=== PATIENT | female | born 1960 | race Caucasian/White ===

== ENCOUNTER 2023-05-20 20:20 | Emergency (ER) | payer MEDICAID ==
[~2023-05-20] VITALS: Ht 167.6 cm; Wt 49.9 kg
[~2023-05-20 20:20] MED LIST: ALBU18HF2 INH; ALBU8.5H8 INH; FLUT10.62 INH; LEVO750T46 PO; PRED50TA PO
[2023-05-20 20:35] VITALS: BP 124/73; TEMP 98.3; O2SAT 98
[2023-05-20 20:57] LABS: BASOPHILS % (AUTO) 0.5 % (0.0-2.0); EOSINOPHILS # (AUTO) 0.1 K/uL (0.0-0.7); EOSINOPHILS % (AUTO) 3.1 % (0.0-6.0); HEMATOCRIT 42 % (33-45); HEMOGLOBIN 13.6 g/dL (11.5-14.8); LYMPHOCYTES # (AUTO) 0.8 K/uL (0.8-4.8); LYMPHOCYTES % (AUTO) 22.8 % (20.0-44.0); MEAN CORPUSCULAR HEMOGLOBIN 32 PG (26.0-33.0); MEAN CORPUSCULAR HGB CONC 33 g/dl (31.0-36.0); MEAN CORPUSCULAR VOLUME 97 fL (82-100); MONOCYTES # (AUTO) 0.3 K/uL (0.1-1.30); MONOCYTES % (AUTO) 7.4 % (2.0-12.0); NEUTROPHILS # (AUTO) 2.4 K/uL (1.8-8.9); NEUTROPHILS % (AUTO) 66.2 % (43.0-81.0); PLATELET COUNT (AUTO) 310 K/uL (150-450); RED BLOOD CELL COUNT(AUTO) 4.29 MIL/uL (4.0-5.2); RED CELL DISTRIBUTION WIDTH 16.4 % (11.5-15.0); WHITE BLOOD COUNT (AUTO) 3.6 K/uL (4.3-11.0)
[2023-05-20 21:08] LABS: APPEARANCE,URINE CLEAR (CLEAR); BILIRUBIN,URINE NEGATIVE (NEGATIVE); BLOOD, URINE NEGATIVE Ery/uL (NEGATIVE); COLOR,URINE YELLOW (YELLOW); KETONES,URINE NEGATIVE (NEGATIVE); LEUKOCYTE ESTERASE ,URINE NEGATIVE (NEGATIVE); NITRITE, URINE NEGATIVE (NEGATIVE); PROTEIN,URINE 1+ mg/dl (NEGATIVE); UGLUCOSE NEGATIVE (NEGATIVE); UROBILINOGEN,URINE 0.2 EU/dL (0.2)
[2023-05-20 21:17] LABS: CALCIUM, SERUM 9.1 mg/dL (8.5-10.1); CARBON DIOXIDE 24 mmol/L (21-32); CHLORIDE 99 mmol/L (98-107); CREATININE 0.8 mg/dL (0.6-1.3); GLUCOSE 86 mg/dL (74-106); POTASSIUM 3.3 mmol/L (3.5-5.1); SODIUM SERUM 133 mmol/L (136-145); UREA NITROGEN, BLOOD 6 mg/dL (7-18)
[2023-05-20 21:24] LABS: ALANINE AMINOTRANSFERASE 24 U/L (12-78); ALBUMIN 3.2 g/dL (3.4-5.0); ALKALINE PHOSPHATASE 198 U/L (46-116); ASPARTATE AMINOTRANSFERASE 35 U/L (15-37); BILIRUBIN,DIRECT 0.1 mg/dL (0.0-0.2); BILIRUBIN,TOTAL 0.2 mg/dL (0.2-1.0); TOTAL PROTEIN, SERUM 8.7 g/dL (6.4-8.2)
[2023-05-20 21:29] LABS: ADD URINE CULTURE NO; BACTERIA,URINE None seen /HPF (None Seen); MUCUS,URINE Few /LPF (None Seen); RBC,URINE 0-2 /HPF (0-2); WBC,URINE 0-2 /HPF (0-3)
== END 2023-05-20 22:03 | disposition home or self-care (01) ==
LOC: ER 20:21
DX: R53.1 Weakness (principal); J44.9 Chronic obstructive pulmonary disease, unspecified; Z79.899 Other long term (current) drug therapy; Z90.49 Acquired absence of other specified parts of digestive tract; Z59.00 Homelessness unspecified
CPT/HCPCS: 36415; 71045-TC; 80048-TC; 80076-TC; 81001; 84484-TC; 85025-TC

== ENCOUNTER 2023-10-22 09:14 | Inpatient (IN) | payer MEDICAID ==
[~2023-10-22] VITALS: Ht 167.6 cm; Wt 47.6 kg
[2023-10-22] VITALS (9 sets, daily range): BP systolic 142–151; BP diastolic 74–79; TEMP 98.6–99; O2SAT 93–100
[2023-10-22] MEDS ORDERED: Magnesium 1GM/D5W 100ML PREMIX 100 ML IV ONE (09:30)
[2023-10-22] MEDS ORDERED: methylPREDNISolone SOD SUCC 125 MG/2ML VIAL ONE (09:30)
[2023-10-22] MEDS ORDERED: methylPREDNISolone SOD SUCC 125 MG/2ML VIAL IV ONE (09:30)
[2023-10-22] MEDS: IPRATROPIUM NEB FS 0.5 MG/2.5 ML AMPUL.NEB NEB ONE (09:30)
[2023-10-22] MEDS: ALBUTEROL FS 2.5 MG/3 ML VIAL.NEB NEB ONE (09:30)
[2023-10-22] MEDS: methylPREDNISolone SOD SUCC 40 MG/ML VIAL IV ONE (09:32)
[2023-10-22] MEDS ORDERED: ALBUTEROL FS 2.5 MG/3 ML VIAL.NEB ONE (09:34)
[2023-10-22] MEDS ORDERED: ALBUTEROL FS 2.5 MG/0.5 ML VIAL.NEB ONE (09:34)
[2023-10-22] MEDS: Magnesium 1GM/D5W 100ML PREMIX 200 ML IV ONE (09:35)
[2023-10-22] MEDS ORDERED: methylPREDNISolone SOD SUCC 40 MG/ML VIAL ONE (09:35)
[2023-10-22] MEDS ORDERED: BICT1TAB PO (10:09)
[2023-10-22] MEDS ORDERED: ALBU18HF2 IH (10:09)
[2023-10-22 10:43] LABS: BASOPHILS % (AUTO) 0.8 % (0.0-2.0); EOSINOPHILS # (AUTO) 0.1 K/uL (0.0-0.7); EOSINOPHILS % (AUTO) 3.3 % (0.0-6.0); HEMATOCRIT 36 % (33-45); HEMOGLOBIN 12.1 g/dL (11.5-14.8); LYMPHOCYTES # (AUTO) 1.5 K/uL (0.8-4.8); LYMPHOCYTES % (AUTO) 32.9 % (20.0-44.0); MEAN CORPUSCULAR HEMOGLOBIN 32 PG (26.0-33.0); MEAN CORPUSCULAR HGB CONC 34 g/dl (31.0-36.0); MEAN CORPUSCULAR VOLUME 96 fL (82-100); MONOCYTES # (AUTO) 0.2 K/uL (0.1-1.30); MONOCYTES % (AUTO) 4.3 % (2.0-12.0); NEUTROPHILS # (AUTO) 2.6 K/uL (1.8-8.9); NEUTROPHILS % (AUTO) 58.7 % (43.0-81.0); PLATELET COUNT (AUTO) 306 K/uL (150-450); RED BLOOD CELL COUNT(AUTO) 3.76 MIL/uL (4.0-5.2); WHITE BLOOD COUNT (AUTO) 4.5 K/uL (4.3-11.0)
[2023-10-22 10:52] LABS: LACTIC ACID 1.3 mmol/L (0.4-2.0)
[2023-10-22 10:57] LABS: CALCIUM, SERUM 8.8 mg/dL (8.5-10.1); CARBON DIOXIDE 26 mmol/L (21-32); CHLORIDE 102 mmol/L (98-107); CREATININE 0.7 mg/dL (0.6-1.3); GLUCOSE 107 mg/dL (74-106); POTASSIUM 3.3 mmol/L (3.5-5.1); SODIUM SERUM 140 mmol/L (136-145); UREA NITROGEN, BLOOD 1 mg/dL (7-18)
[2023-10-22 11:03] LABS: ALANINE AMINOTRANSFERASE 19 U/L (12-78); ALBUMIN 2.6 g/dL (3.4-5.0); ALKALINE PHOSPHATASE 225 U/L (46-116); ASPARTATE AMINOTRANSFERASE 42 U/L (15-37); BILIRUBIN,DIRECT 0.1 mg/dL (0.0-0.2); BILIRUBIN,TOTAL 0.2 mg/dL (0.2-1.0); TOTAL PROTEIN, SERUM 8.1 g/dL (6.4-8.2)
[2023-10-22] MEDS: IPRATROPIUM NEB FS 0.5 MG/2.5 ML AMPUL.NEB NEB SCH (13:00)
[2023-10-22] MEDS ORDERED: ZOLPIDEM TARTRATE 5 MG TABLET PO PRN (13:00)
[2023-10-22] MEDS ORDERED: Z GUARD REMEDY 4 OZ OINT TP PRN (13:00)
[2023-10-22] MEDS: ALBUTEROL FS 2.5 MG/0.5 ML VIAL.NEB NEB SCH (13:00)
[2023-10-22] MEDS: methylPREDNISolone SOD SUCC 40 MG/ML VIAL IV SCH (13:16)
[2023-10-22] MEDS: IV 1/2NS 1000 ML 1,000 ML IV PRN (13:17)
[2023-10-22] MEDS: POTASSIUM CL. PREMIX PERIPHER. 50 ML IV SCH (13:17)
[2023-10-22] MEDS: ENOXAPARIN SODIUM 40 MG/0.4 ML DISP.SYRIN SQ SCH (13:20)
[2023-10-23] VITALS (13 sets, daily range): BP systolic 121–151; BP diastolic 57–83; TEMP 97.4–99.3; O2SAT 94–100
[2023-10-23] MEDS: HYDROCODONE/APAP 5/325MG TABLET PO PRN (00:45)
[2023-10-23] MEDS: MAG HYDROX/AL HYDROX/SIMETH 30 ML UDC PO PRN (02:56)
[2023-10-23 04:28] LABS: ABG BASE EXCESS 1.6 mmol/L; ABG OXYGEN SATURATION 94.9 % (92.0-98.5); ABG PCO2 31.5 mmHg (35.0-45.0); ABG PH 7.502 (7.350-7.450); ABG PO2 73.9 mmHg (75.0-100.0); ABG TOTAL HEMOGLOBIN 12.8 G/dL (12.0-16.0); AaDO2 38.1 mmHg; COHb 0.3 % (0.5-1.5); MetHb 0.3 % (0.0-1.5); O2Hb 94.3 % (94.0-97.0); SITE, ABG Left Brachial; VENT MODE, BG ROOM AIR
[2023-10-23] MEDS: LORAZEPAM INJ 2 MG/ML VIAL IV ONE (07:01)
[2023-10-23 07:19] LABS: BASOPHILS % (AUTO) 0.1 % (0.0-2.0); EOSINOPHILS % (AUTO) 0.1 % (0.0-6.0); HEMATOCRIT 34 % (33-45); HEMOGLOBIN 11.2 g/dL (11.5-14.8); LYMPHOCYTES # (AUTO) 0.7 K/uL (0.8-4.8); LYMPHOCYTES % (AUTO) 12.1 % (20.0-44.0); MEAN CORPUSCULAR HEMOGLOBIN 33 PG (26.0-33.0); MEAN CORPUSCULAR HGB CONC 33 g/dl (31.0-36.0); MEAN CORPUSCULAR VOLUME 100 fL (82-100); MONOCYTES # (AUTO) 0.3 K/uL (0.1-1.30); MONOCYTES % (AUTO) 5.7 % (2.0-12.0); NEUTROPHILS # (AUTO) 4.6 K/uL (1.8-8.9); PLATELET COUNT (AUTO) 316 K/uL (150-450); RED BLOOD CELL COUNT(AUTO) 3.44 MIL/uL (4.0-5.2); RED CELL DISTRIBUTION WIDTH 15.7 % (11.5-15.0); WHITE BLOOD COUNT (AUTO) 5.6 K/uL (4.3-11.0)
[2023-10-23 07:48] LABS: ALBUMIN 2.4 g/dL (3.4-5.0); BILIRUBIN,TOTAL 0.3 mg/dL (0.2-1.0); CALCIUM, SERUM 9.1 mg/dL (8.5-10.1); CREATININE 0.7 mg/dL (0.6-1.3); PHOSPHORUS 3.7 mg/dL (2.5-4.9); POTASSIUM 4.8 mmol/L (3.5-5.1); TOTAL PROTEIN, SERUM 7.8 g/dL (6.4-8.2)
[2023-10-23] MEDS ORDERED: IV NS 0.9% 250 ML IV ONE (10:45)
[2023-10-23] MEDS ORDERED: IOHEXOL-300 100 ML VIAL IV ONE (10:45)
[2023-10-23] MEDS ORDERED: CT SWABBABLE VALVE TRANS SET 1 EA INFUS.SET MC ONE (10:45)
[2023-10-23] MEDS: MAGNESIUM HYDROXIDE 30 ML UDC PO PRN (16:11)
[2023-10-23] MEDS: ENSURE ENLIVE 237 ML LIQUID (VANILLA) PO SCH (17:10)
[2023-10-24] VITALS (10 sets, daily range): BP systolic 155–157; BP diastolic 83–101; TEMP 97.2–98.4; O2SAT 95–98
[2023-10-25] VITALS (8 sets, daily range): BP systolic 157–189; BP diastolic 90–109; TEMP 97–99.1; O2SAT 95–99
[2023-10-25] MEDS: LORAZEPAM 1 MG TABLET PO PRN (03:33)
[2023-10-25 06:13] LABS: THYROID STIMULATING HORMONE 1.083 uIU/mL (0.358-3.74); URIC ACID 2.1 mg/dL (2.6-7.2)
[2023-10-25] MEDS ORDERED: SIMETHICONE/SOD BICARB/CIT AC 1 EACH GRAN.EF.PK PO ONE (10:06)
[2023-10-25] MEDS ORDERED: BARIUM SULFATE 98% 135 ML SUSP.RECON PO ONE (10:07)
[2023-10-25 10:29] LABS: CALCIUM, SERUM 9.3 mg/dL (8.5-10.1); CREATININE 0.7 mg/dL (0.6-1.3); MAGNESIUM 2.3 mg/dL (1.8-2.4); PHOSPHORUS 2.4 mg/dL (2.5-4.9); POTASSIUM 3.9 mmol/L (3.5-5.1)
[2023-10-25] MEDS: ONDANSETRON HCL/PF 4 MG/2 ML VIAL IVP PRN (15:43)
[2023-10-25] MEDS: K PHOS NEUTRAL 250 MG TABLET PO ONE (17:16)
[2023-10-25] MEDS: CLONIDINE HCL 0.1 MG TABLET PO SCH (17:16)
[2023-10-25] MEDS: CLONIDINE HCL 0.1 MG TABLET PO ONE (22:23)
[2023-10-26 08:00] VITALS: BP 162/104; TEMP 98.2; O2SAT 94
[2023-10-26 10:00] VITALS: BP 155/95; TEMP 98.2; O2SAT 94
[2023-10-26] MEDS ORDERED: MIDAZOLAM HCL 2 MG/2ML VIAL ONE (12:16)
[2023-10-26] MEDS ORDERED: ANESTHESIA TRAY IN PYXIS 1 EA TRAY MC ONE (12:17)
[2023-10-26 12:35] LABS: BASOPHILS % (AUTO) 0.1 % (0.0-2.0); EOSINOPHILS % (AUTO) 0.1 % (0.0-6.0); HEMATOCRIT 39 % (33-45); HEMOGLOBIN 13.2 g/dL (11.5-14.8); LYMPHOCYTES % (AUTO) 17.7 % (20.0-44.0); MEAN CORPUSCULAR HEMOGLOBIN 32 PG (26.0-33.0); MEAN CORPUSCULAR HGB CONC 34 g/dl (31.0-36.0); MEAN CORPUSCULAR VOLUME 95 fL (82-100); MONOCYTES # (AUTO) 0.4 K/uL (0.1-1.30); MONOCYTES % (AUTO) 7.6 % (2.0-12.0); NEUTROPHILS # (AUTO) 4.1 K/uL (1.8-8.9); NEUTROPHILS % (AUTO) 74.5 % (43.0-81.0); PLATELET COUNT (AUTO) 372 K/uL (150-450); RED BLOOD CELL COUNT(AUTO) 4.12 MIL/uL (4.0-5.2); RED CELL DISTRIBUTION WIDTH 15.6 % (11.5-15.0); WHITE BLOOD COUNT (AUTO) 5.5 K/uL (4.3-11.0)
[2023-10-26 12:47] LABS: CALCIUM, SERUM 9.2 mg/dL (8.5-10.1); CREATININE 0.5 mg/dL (0.6-1.3); POTASSIUM 3.6 mmol/L (3.5-5.1)
[2023-10-26 12:49] LABS: INR 0.99 (0.91-1.10); PROTHROMBIN TIME 10.5 SECS (9.2-11.1)
[2023-10-26] MEDS: ACETAMINOPHEN 325 MG TABLET PO PRN (13:48)
[2023-10-26 16:00] VITALS: BP 127/74; TEMP 98.1; O2SAT 98
[2023-10-26] MEDS: FLUCONAZOLE (100 MG) 100 MG TABLET PO SCH (17:36)
[2023-10-26 20:00] VITALS: BP 143/90; TEMP 98.1; O2SAT 96
[2023-10-27 03:44] VITALS: O2SAT 96
[2023-10-27 03:59] VITALS: O2SAT 99
[2023-10-27 08:00] VITALS: BP 174/100; TEMP 97.7; O2SAT 100
[2023-10-27] MEDS: AMLODIPINE BESYLATE 5 MG TABLET PO SCH (09:08)
[2023-10-27] MEDS: MUPIROCIN OINT 2% 22 GM TUBE NS SCH (10:59)
[2023-10-27] MEDS ORDERED: PANT40TA2 PO (11:18)
[2023-10-27] MEDS ORDERED: ALBU18HF2 INH (11:18)
[2023-10-27] MEDS ORDERED: FLUC200T8 PO (11:18)
[2023-10-27] MEDS ORDERED: CLON0.1T PO (11:18)
[2023-10-27] MEDS ORDERED: AMLO-212 PO (11:18)
[2023-10-27] MEDS ORDERED: FLUT1DIS3 INH (11:18)
[2023-10-27 16:00] VITALS: BP 100/59; TEMP 97.8; O2SAT 94
[2023-10-27 20:00] VITALS: BP 169/85; TEMP 98.1; O2SAT 100
[2023-10-28 07:00] VITALS: BP_SYST 153; BP_SYST 175; BP_DIAS 83; BP_DIAS 95; TEMP 97.2; TEMP 98.1; O2SAT 100; O2SAT 97
[2023-10-28 07:24] LABS: CALCIUM, SERUM 9.1 mg/dL (8.5-10.1); CREATININE 0.6 mg/dL (0.6-1.3); POTASSIUM 4.2 mmol/L (3.5-5.1)
[2023-10-28] MEDS: AMLODIPINE BESYLATE 10 MG TABLET PO SCH (10:02)
[2023-10-28] MEDS: ASPIRIN 325 MG TABLET PO SCH (10:26)
[2023-10-28] MEDS: ATORVASTATIN 40 MG TABLET PO SCH (10:26)
[2023-10-28] MEDS: methylPREDNISolone SOD SUCC 40 MG/ML VIAL IV SCH (10:30)
[2023-10-28 11:15] LABS: THYROID STIMULATING HORMONE 4.086 uIU/mL (0.358-3.74)
[2023-10-28] MEDS ORDERED: IV NS 0.9% 250 ML IV ONE (15:11)
[2023-10-28] MEDS ORDERED: IOHEXOL-350 100 ML VIAL IV ONE (15:11)
[2023-10-28 16:00] VITALS: BP 101/31; TEMP 99.5; O2SAT 100
[2023-10-28] MEDS ORDERED: CLOPIDOGREL BISULFATE 75 MG TABLET PO SCH (17:00)
[2023-10-28] MEDS: CLOPIDOGREL BISULFATE 75 MG TABLET PO SCH (17:03)
[2023-10-28 20:00] VITALS: BP 139/82; TEMP 99.5; O2SAT 99
[2023-10-28 21:31] VITALS: O2SAT 95
[2023-10-28 21:46] VITALS: O2SAT 99
[2023-10-29 08:00] VITALS: BP 155/74; TEMP 97.7; O2SAT 96
[2023-10-29 16:00] VITALS: BP 140/86; TEMP 98.8; O2SAT 93
[2023-10-29 20:00] VITALS: BP 146/74; TEMP 97.5; O2SAT 99
[2023-10-29 23:34] VITALS: O2SAT 96
[2023-10-29 23:49] VITALS: O2SAT 99
[2023-10-30 03:08] LABS: FOLIC ACID 7.4 ng/mL (>3.0)
[2023-10-30 07:04] LABS: BASOPHILS % (AUTO) 0.2 % (0.0-2.0); HEMATOCRIT 42 % (33-45); HEMOGLOBIN 14.4 g/dL (11.5-14.8); LYMPHOCYTES # (AUTO) 1.1 K/uL (0.8-4.8); LYMPHOCYTES % (AUTO) 12.7 % (20.0-44.0); MEAN CORPUSCULAR HEMOGLOBIN 33 PG (26.0-33.0); MEAN CORPUSCULAR HGB CONC 35 g/dl (31.0-36.0); MEAN CORPUSCULAR VOLUME 95 fL (82-100); MONOCYTES # (AUTO) 0.7 K/uL (0.1-1.30); MONOCYTES % (AUTO) 7.8 % (2.0-12.0); NEUTROPHILS # (AUTO) 6.8 K/uL (1.8-8.9); NEUTROPHILS % (AUTO) 79.3 % (43.0-81.0); PLATELET COUNT (AUTO) 474 K/uL (150-450); RED BLOOD CELL COUNT(AUTO) 4.41 MIL/uL (4.0-5.2); RED CELL DISTRIBUTION WIDTH 15.5 % (11.5-15.0); WHITE BLOOD COUNT (AUTO) 8.5 K/uL (4.3-11.0)
[2023-10-30 07:21] LABS: CALCIUM, SERUM 9.3 mg/dL (8.5-10.1); CREATININE 0.7 mg/dL (0.6-1.3); POTASSIUM 4.4 mmol/L (3.5-5.1)
[2023-10-30 07:30] VITALS: BP 149/99; TEMP 97.5; O2SAT 99
[2023-10-30 11:24] VITALS: O2SAT 91
[2023-10-30 11:39] VITALS: O2SAT 96
[2023-10-30 16:00] VITALS: BP 156/81; TEMP 97.9; O2SAT 95
[2023-10-30 20:00] VITALS: BP 159/91; TEMP 98.1; O2SAT 96
[2023-10-31] VITALS (9 sets, daily range): BP systolic 132–149; BP diastolic 76–99; TEMP 97.7–98.7; O2SAT 92–100
[2023-10-31 06:51] LABS: BASOPHILS % (AUTO) 0.2 % (0.0-2.0); HEMATOCRIT 45 % (33-45); HEMOGLOBIN 15.1 g/dL (11.5-14.8); LYMPHOCYTES % (AUTO) 12.2 % (20.0-44.0); MEAN CORPUSCULAR HEMOGLOBIN 32 PG (26.0-33.0); MEAN CORPUSCULAR HGB CONC 34 g/dl (31.0-36.0); MEAN CORPUSCULAR VOLUME 95 fL (82-100); MONOCYTES # (AUTO) 0.6 K/uL (0.1-1.30); MONOCYTES % (AUTO) 7.4 % (2.0-12.0); NEUTROPHILS # (AUTO) 6.5 K/uL (1.8-8.9); NEUTROPHILS % (AUTO) 80.2 % (43.0-81.0); PLATELET COUNT (AUTO) 559 K/uL (150-450); RED BLOOD CELL COUNT(AUTO) 4.71 MIL/uL (4.0-5.2); RED CELL DISTRIBUTION WIDTH 15.3 % (11.5-15.0); WHITE BLOOD COUNT (AUTO) 8.1 K/uL (4.3-11.0)
[2023-10-31 07:01] LABS: CALCIUM, SERUM 9.8 mg/dL (8.5-10.1); CREATININE 0.8 mg/dL (0.6-1.3); POTASSIUM 4.5 mmol/L (3.5-5.1)
[2023-10-31] MEDS: LEVOTHYROXINE SODIUM 50 MCG TABLET PO SCH (10:17)
[2023-10-31] MEDS ORDERED: IV NS 0.9% 1,000 ML BAG IV PRN (10:30)
[2023-10-31] MEDS: FAMOTIDINE (20 MG) 20 MG TABLET PO SCH (18:07)
[2023-11-01] VITALS (10 sets, daily range): BP systolic 117–154; BP diastolic 70–91; TEMP 97.7–98.4; O2SAT 95–100
[2023-11-01] MEDS: IV NS 0.9% 1,000 ML IV PRN (04:30)
[2023-11-01 07:31] LABS: BASOPHILS % (AUTO) 0.1 % (0.0-2.0); HEMATOCRIT 45 % (33-45); HEMOGLOBIN 14.9 g/dL (11.5-14.8); LYMPHOCYTES # (AUTO) 0.8 K/uL (0.8-4.8); LYMPHOCYTES % (AUTO) 6.6 % (20.0-44.0); MEAN CORPUSCULAR HEMOGLOBIN 32 PG (26.0-33.0); MEAN CORPUSCULAR HGB CONC 33 g/dl (31.0-36.0); MEAN CORPUSCULAR VOLUME 96 fL (82-100); MONOCYTES # (AUTO) 0.4 K/uL (0.1-1.30); MONOCYTES % (AUTO) 3.6 % (2.0-12.0); NEUTROPHILS # (AUTO) 10.4 K/uL (1.8-8.9); NEUTROPHILS % (AUTO) 89.7 % (43.0-81.0); PLATELET COUNT (AUTO) 493 K/uL (150-450); RED BLOOD CELL COUNT(AUTO) 4.64 MIL/uL (4.0-5.2); RED CELL DISTRIBUTION WIDTH 15.3 % (11.5-15.0); WHITE BLOOD COUNT (AUTO) 11.5 K/uL (4.3-11.0)
[2023-11-01 08:04] LABS: CALCIUM, SERUM 9.1 mg/dL (8.5-10.1); CREATININE 0.7 mg/dL (0.6-1.3); POTASSIUM 4.4 mmol/L (3.5-5.1)
[2023-11-01] MEDS: LIDOCAINE 5% (PATCH) 1 EA PATCH TP SCH (13:15)
[2023-11-02] VITALS (12 sets, daily range): BP systolic 115–141; BP diastolic 74–89; TEMP 97.6–99; O2SAT 95–100
[2023-11-02 06:20] LABS: BASOPHILS % (AUTO) 0.1 % (0.0-2.0); HEMATOCRIT 41 % (33-45); HEMOGLOBIN 13.6 g/dL (11.5-14.8); LYMPHOCYTES # (AUTO) 0.7 K/uL (0.8-4.8); LYMPHOCYTES % (AUTO) 4.7 % (20.0-44.0); MEAN CORPUSCULAR HEMOGLOBIN 32 PG (26.0-33.0); MEAN CORPUSCULAR HGB CONC 34 g/dl (31.0-36.0); MEAN CORPUSCULAR VOLUME 95 fL (82-100); MONOCYTES % (AUTO) 6.4 % (2.0-12.0); NEUTROPHILS # (AUTO) 13.8 K/uL (1.8-8.9); NEUTROPHILS % (AUTO) 88.8 % (43.0-81.0); PLATELET COUNT (AUTO) 412 K/uL (150-450); RED BLOOD CELL COUNT(AUTO) 4.26 MIL/uL (4.0-5.2); RED CELL DISTRIBUTION WIDTH 15.4 % (11.5-15.0); WHITE BLOOD COUNT (AUTO) 15.5 K/uL (4.3-11.0)
[2023-11-02 06:56] LABS: CALCIUM, SERUM 9.3 mg/dL (8.5-10.1); CREATININE 0.6 mg/dL (0.6-1.3)
[2023-11-02] MEDS: AMLODIPINE BESYLATE 10 MG TABLET PO SCH (10:40)
[2023-11-02] MEDS: TRAMADOL HCL 50 MG TABLET PO SCH (14:46)
[2023-11-02 18:13] LABS: URINE SODIUM, RANDOM 76 mmol/l (40-220)
[2023-11-03] VITALS (7 sets, daily range): BP systolic 132–152; BP diastolic 63–81; TEMP 97.5–99.1; O2SAT 93–100
[2023-11-03 06:42] LABS: BASOPHILS % (AUTO) 0.2 % (0.0-2.0); HEMATOCRIT 35 % (33-45); HEMOGLOBIN 11.9 g/dL (11.5-14.8); LYMPHOCYTES # (AUTO) 0.6 K/uL (0.8-4.8); LYMPHOCYTES % (AUTO) 2.8 % (20.0-44.0); MEAN CORPUSCULAR HEMOGLOBIN 32 PG (26.0-33.0); MEAN CORPUSCULAR HGB CONC 34 g/dl (31.0-36.0); MEAN CORPUSCULAR VOLUME 94 fL (82-100); MONOCYTES % (AUTO) 5.2 % (2.0-12.0); NEUTROPHILS % (AUTO) 91.8 % (43.0-81.0); PLATELET COUNT (AUTO) 379 K/uL (150-450); RED BLOOD CELL COUNT(AUTO) 3.69 MIL/uL (4.0-5.2); RED CELL DISTRIBUTION WIDTH 15.6 % (11.5-15.0); WHITE BLOOD COUNT (AUTO) 19.7 K/uL (4.3-11.0)
[2023-11-03 07:44] LABS: CREATININE 0.5 mg/dL (0.6-1.3)
[2023-11-03 08:14] LABS: CALCIUM, SERUM 8.6 mg/dL (8.5-10.1)
[2023-11-03 17:19] LABS: OSMOLALITY,URINE 538 mOS/kg (340-1090)
[2023-11-04] VITALS (14 sets, daily range): BP systolic 110–156; BP diastolic 62–90; TEMP 98–99.5; O2SAT 91–99
[2023-11-04 07:08] LABS: BASOPHILS # (AUTO) 0.1 K/uL (0.0-0.2); BASOPHILS % (AUTO) 0.2 % (0.0-2.0); HEMATOCRIT 35 % (33-45); HEMOGLOBIN 11.9 g/dL (11.5-14.8); LYMPHOCYTES # (AUTO) 0.5 K/uL (0.8-4.8); LYMPHOCYTES % (AUTO) 2.1 % (20.0-44.0); MEAN CORPUSCULAR HEMOGLOBIN 32 PG (26.0-33.0); MEAN CORPUSCULAR HGB CONC 34 g/dl (31.0-36.0); MEAN CORPUSCULAR VOLUME 94 fL (82-100); MONOCYTES # (AUTO) 0.7 K/uL (0.1-1.30); MONOCYTES % (AUTO) 3.4 % (2.0-12.0); NEUTROPHILS # (AUTO) 20.7 K/uL (1.8-8.9); NEUTROPHILS % (AUTO) 94.3 % (43.0-81.0); PLATELET COUNT (AUTO) 346 K/uL (150-450); RED BLOOD CELL COUNT(AUTO) 3.69 MIL/uL (4.0-5.2); RED CELL DISTRIBUTION WIDTH 15.3 % (11.5-15.0); WHITE BLOOD COUNT (AUTO) 21.9 K/uL (4.3-11.0)
[2023-11-04 07:48] LABS: CALCIUM, SERUM 9.1 mg/dL (8.5-10.1); CREATININE 0.6 mg/dL (0.6-1.3); POTASSIUM 3.8 mmol/L (3.5-5.1)
[2023-11-04] MEDS: LORAZEPAM INJ 2 MG/ML VIAL IV ONE (16:43)
[2023-11-04] MEDS: BACLOFEN (10 MG) 10 MG TABLET PO SCH (16:50)
[2023-11-05 06:21] LABS: BASOPHILS # (AUTO) 0.1 K/uL (0.0-0.2); BASOPHILS % (AUTO) 0.4 % (0.0-2.0); CALCIUM, SERUM 9.3 mg/dL (8.5-10.1); CREATININE 0.6 mg/dL (0.6-1.3); HEMATOCRIT 34 % (33-45); HEMOGLOBIN 11.3 g/dL (11.5-14.8); LYMPHOCYTES # (AUTO) 0.5 K/uL (0.8-4.8); LYMPHOCYTES % (AUTO) 2.4 % (20.0-44.0); MEAN CORPUSCULAR HEMOGLOBIN 31 PG (26.0-33.0); MEAN CORPUSCULAR HGB CONC 33 g/dl (31.0-36.0); MEAN CORPUSCULAR VOLUME 94 fL (82-100); MONOCYTES # (AUTO) 0.7 K/uL (0.1-1.30); MONOCYTES % (AUTO) 3.5 % (2.0-12.0); NEUTROPHILS # (AUTO) 17.4 K/uL (1.8-8.9); NEUTROPHILS % (AUTO) 93.7 % (43.0-81.0); PLATELET COUNT (AUTO) 344 K/uL (150-450); POTASSIUM 3.8 mmol/L (3.5-5.1); RED BLOOD CELL COUNT(AUTO) 3.62 MIL/uL (4.0-5.2); RED CELL DISTRIBUTION WIDTH 15.4 % (11.5-15.0); WHITE BLOOD COUNT (AUTO) 18.6 K/uL (4.3-11.0)
[2023-11-05 08:00] VITALS: BP 148/86; TEMP 98.8; O2SAT 94
[2023-11-05 08:27] VITALS: O2SAT 99
[2023-11-05] MEDS: AMLODIPINE BESYLATE 10 MG TABLET PO SCH (08:32)
[2023-11-05] MEDS: RIVAROXABAN 10 MG TABLET PO SCH (09:23)
[2023-11-05 12:00] VITALS: BP 154/95; TEMP 97.6; O2SAT 96
[2023-11-05 16:00] VITALS: BP 136/78; TEMP 99.7; O2SAT 96
[2023-11-05 20:23] VITALS: BP 148/81; TEMP 97.9; O2SAT 90
[2023-11-05 21:05] VITALS: BP 148/81; TEMP 97.9; O2SAT 90
[2023-11-05] MEDS: TRAMADOL HCL 50 MG TABLET PO PRN (22:12)
[2023-11-06] VITALS (7 sets, daily range): BP systolic 129–146; BP diastolic 78–85; TEMP 97.6–99.5; O2SAT 91–98
[2023-11-06] MEDS: LIDOCAINE 5% (PATCH) 1 EA PATCH TP SCH (12:00)
[2023-11-06] MEDS: HYDROMORPHONE 1 MG/1 ML DISP.SYRIN IV PRN (12:16)
[2023-11-06] MEDS: BACLOFEN (10 MG) 10 MG TABLET PO SCH (12:53)
[2023-11-06] MEDS: GABAPENTIN 100 MG CAPSULE PO SCH (17:57)
[2023-11-06] MEDS: TEMAZEPAM 15 MG CAPSULE PO SCH (21:16)
[2023-11-07] VITALS (8 sets, daily range): BP systolic 123–153; BP diastolic 64–88; TEMP 98.2–102; O2SAT 88–98
[2023-11-07] MEDS: MUPIROCIN OINT 2% 22 GM TUBE NS SCH (09:34)
[2023-11-08] VITALS (13 sets, daily range): BP systolic 115–149; BP diastolic 66–85; TEMP 97.2–100.8; O2SAT 92–99
[2023-11-08 11:10] LABS: HEMATOCRIT 36 % (33-45); HEMOGLOBIN 11.9 g/dL (11.5-14.8); LYMPHOCYTES # (AUTO) 0.3 K/uL (0.8-4.8); LYMPHOCYTES % (AUTO) 3.8 % (20.0-44.0); MEAN CORPUSCULAR HEMOGLOBIN 31 PG (26.0-33.0); MEAN CORPUSCULAR HGB CONC 33 g/dl (31.0-36.0); MEAN CORPUSCULAR VOLUME 96 fL (82-100); MONOCYTES # (AUTO) 0.2 K/uL (0.1-1.30); MONOCYTES % (AUTO) 2.1 % (2.0-12.0); NEUTROPHILS # (AUTO) 8.4 K/uL (1.8-8.9); NEUTROPHILS % (AUTO) 94.1 % (43.0-81.0); PLATELET COUNT (AUTO) 226 K/uL (150-450); RED BLOOD CELL COUNT(AUTO) 3.77 MIL/uL (4.0-5.2); RED CELL DISTRIBUTION WIDTH 15.8 % (11.5-15.0); WHITE BLOOD COUNT (AUTO) 8.9 K/uL (4.3-11.0)
[2023-11-08 11:21] LABS: CALCIUM, SERUM 8.7 mg/dL (8.5-10.1); CREATININE 0.6 mg/dL (0.6-1.3); MAGNESIUM 2.3 mg/dL (1.8-2.4); PHOSPHORUS 2.8 mg/dL (2.5-4.9); POTASSIUM 3.4 mmol/L (3.5-5.1)
[2023-11-08] MEDS ORDERED: POLYETHYLENE GLYCOL 3350 17 GM POWD.PACK PO PRN (12:00)
[2023-11-08] MEDS: POTASSIUM CHLORIDE 20 MEQ TAB.PRT.SR PO ONE (13:02)
[2023-11-08] MEDS ORDERED: NALOXONE HCL 0.4 MG/ML AMPUL IV PRN ×2 (16:00→16:02)
[2023-11-08] MEDS: GABAPENTIN 100 MG CAPSULE PO SCH (17:08)
[2023-11-08] MEDS: VANCOMYCIN 1 GM in IV D5W 250ml IV ONE (20:25)
[2023-11-08] MEDS: CEFEPIME 1 GM in IV D5W 50 ML IV SCH (21:49)
[2023-11-09] VITALS (10 sets, daily range): BP systolic 110–148; BP diastolic 68–86; TEMP 97.3–99.1; O2SAT 95–100
[2023-11-09 06:17] LABS: BASOPHILS % (AUTO) 0.1 % (0.0-2.0); HEMATOCRIT 35 % (33-45); HEMOGLOBIN 11.6 g/dL (11.5-14.8); LYMPHOCYTES # (AUTO) 0.3 K/uL (0.8-4.8); MEAN CORPUSCULAR HEMOGLOBIN 32 PG (26.0-33.0); MEAN CORPUSCULAR HGB CONC 33 g/dl (31.0-36.0); MEAN CORPUSCULAR VOLUME 96 fL (82-100); MONOCYTES # (AUTO) 0.2 K/uL (0.1-1.30); MONOCYTES % (AUTO) 1.7 % (2.0-12.0); NEUTROPHILS # (AUTO) 9.8 K/uL (1.8-8.9); NEUTROPHILS % (AUTO) 95.2 % (43.0-81.0); PLATELET COUNT (AUTO) 204 K/uL (150-450); RED BLOOD CELL COUNT(AUTO) 3.68 MIL/uL (4.0-5.2); RED CELL DISTRIBUTION WIDTH 15.7 % (11.5-15.0); WHITE BLOOD COUNT (AUTO) 10.3 K/uL (4.3-11.0)
[2023-11-09 06:50] LABS: CALCIUM, SERUM 9.1 mg/dL (8.5-10.1); CREATININE 0.5 mg/dL (0.6-1.3); POTASSIUM 4.3 mmol/L (3.5-5.1)
[2023-11-09] MEDS: VANCOMYCIN 750 MG in IV D5W 250 ML IV SCH (08:08)
[2023-11-09] MEDS ORDERED: LIDOCAINE 5% (PATCH) 1 EA PATCH TP SCH (13:00)
[2023-11-09] MEDS: HYDROCODONE/APAP 10/325MG TABLET PO PRN (16:20)
[2023-11-09] MEDS: MIRTAZAPINE 15 MG TABLET PO SCH (21:49)
[2023-11-10] VITALS (7 sets, daily range): BP systolic 106–134; BP diastolic 62–75; TEMP 98.1–99.1; O2SAT 95–100
[2023-11-10 07:55] LABS: CALCIUM, SERUM 9.3 mg/dL (8.5-10.1); CREATININE 0.7 mg/dL (0.6-1.3); POTASSIUM 4.3 mmol/L (3.5-5.1)
[2023-11-11 08:00] VITALS: BP 144/71; TEMP 98.8; O2SAT 95
[2023-11-11 08:26] LABS: CREATININE 0.8 mg/dL (0.6-1.3); POTASSIUM 3.7 mmol/L (3.5-5.1)
[2023-11-11] MEDS: GABAPENTIN 100 MG CAPSULE PO SCH (12:56)
[2023-11-11] MEDS ORDERED: NALOXONE HCL 0.4 MG/ML AMPUL IV PRN (14:00)
[2023-11-11 15:30] VITALS: O2SAT 97
[2023-11-11 15:40] VITALS: O2SAT 99
[2023-11-11 15:43] LABS: APPEARANCE,URINE CLEAR (CLEAR); BILIRUBIN,URINE NEGATIVE (NEGATIVE); BLOOD, URINE 1+ Ery/uL (NEGATIVE); COLOR,URINE YELLOW (YELLOW); KETONES,URINE NEGATIVE (NEGATIVE); LEUKOCYTE ESTERASE ,URINE 3+ (NEGATIVE); NITRITE, URINE NEGATIVE (NEGATIVE); PH,URINE 7.5 (5.0-8.0); PROTEIN,URINE TRACE mg/dl (NEGATIVE); UGLUCOSE 1+ mg/dL (NEGATIVE); UROBILINOGEN,URINE 0.2 EU/dL (0.2)
[2023-11-11 15:54] LABS: ADD URINE CULTURE YES; BACTERIA,URINE 3+ /HPF (None Seen); SQUAMOUS EPITHELIAL CELL,UR 0-2 /HPF (None Seen); WBC,URINE 51-80 /HPF (0-3)
[2023-11-11 16:00] VITALS: BP 117/70; TEMP 98.9; O2SAT 99
[2023-11-11 20:00] VITALS: BP 142/76; TEMP 97.7; O2SAT 95
[2023-11-11] MEDS: VANCOMYCIN 500 MG in IV D5W 100ml IV SCH (20:51)
[2023-11-11] MEDS: oxyCODONE HCL SR 10MG TAB.SR.12H PO SCH (21:09)
[2023-11-11] MEDS: FLUCONAZOLE (100 MG) 100 MG TABLET PO SCH (21:34)
[2023-11-12] VITALS (16 sets, daily range): BP systolic 114–140; BP diastolic 64–89; TEMP 97.7–99.9; O2SAT 94–100
[2023-11-12 07:12] LABS: CALCIUM, SERUM 9.1 mg/dL (8.5-10.1); CREATININE 0.8 mg/dL (0.6-1.3); POTASSIUM 3.8 mmol/L (3.5-5.1)
[2023-11-12 07:27] LABS: HEMATOCRIT 32 % (33-45); HEMOGLOBIN 10.7 g/dL (11.5-14.8); LYMPHOCYTES # (AUTO) 0.3 K/uL (0.8-4.8); LYMPHOCYTES % (AUTO) 8.8 % (20.0-44.0); MEAN CORPUSCULAR HEMOGLOBIN 32 PG (26.0-33.0); MEAN CORPUSCULAR HGB CONC 34 g/dl (31.0-36.0); MEAN CORPUSCULAR VOLUME 96 fL (82-100); MONOCYTES # (AUTO) 0.1 K/uL (0.1-1.30); MONOCYTES % (AUTO) 2.4 % (2.0-12.0); NEUTROPHILS # (AUTO) 3.3 K/uL (1.8-8.9); NEUTROPHILS % (AUTO) 88.8 % (43.0-81.0); PLATELET COUNT (AUTO) 263 K/uL (150-450); RED BLOOD CELL COUNT(AUTO) 3.34 MIL/uL (4.0-5.2); RED CELL DISTRIBUTION WIDTH 15.5 % (11.5-15.0); WHITE BLOOD COUNT (AUTO) 3.7 K/uL (4.3-11.0)
[2023-11-12] MEDS: RIFAMPIN 300 MG CAPSULE PO SCH (08:28)
[2023-11-12 12:33] LABS: INR 0.97 (0.91-1.10); PARTIAL THROMBOPLASTIN TIME 25.6 SEC (24.3-34.3); PROTHROMBIN TIME 10.3 SECS (9.2-11.1)
[2023-11-12] MEDS ORDERED: HEMOSTATIC MATRIX 8 ML 1 EACH PAD MC ONE (14:51)
[2023-11-12] MEDS ORDERED: CELLULOSE,OXIDIZED 1 EA PACK MC ONE (14:51)
[2023-11-12] MEDS ORDERED: ANESTHESIA TRAY IN PYXIS 1 EA TRAY MC ONE (14:52)
[2023-11-12] MEDS ORDERED: GELATIN SPONGE,ABSORBABLE 1 EA SPONGE TP ONE (14:52)
[2023-11-12] MEDS ORDERED: LIDOCAINE 1%-EPI 1:100,000 20 ML VIAL ONE (14:52)
[2023-11-12] MEDS ORDERED: THROMBIN (BOVINE) 5,000 UNITS VIAL TP ONE (14:52)
[2023-11-12] MEDS ORDERED: THROMBIN (BOVINE) 20,000 UNITS SPRAY KIT TP ONE ×2 (14:53→18:08)
[2023-11-12] MEDS ORDERED: CEFAZOLIN 0 GM ONE (14:53)
[2023-11-12] MEDS ORDERED: BUPIVACAINE 0.5 % PF 150 MG/30 ML VIAL ONE (14:54)
[2023-11-12] MEDS ORDERED: LIDOCAINE 5% (PATCH) 1 EA PATCH TP ONE (14:54)
[2023-11-12] MEDS ORDERED: POLYMYXIN B SULFATE 0 UNITS ONE (14:54)
[2023-11-12] MEDS ORDERED: FENTANYL PF 250MCG/5ML AMPUL ONE (15:40)
[2023-11-12] MEDS ORDERED: PHYTONADIONE INJ 10 MG/1 ML AMPUL ONE (15:47)
[2023-11-12] MEDS ORDERED: CEFAZOLIN 1 GM ONE (15:56)
[2023-11-12] MEDS ORDERED: POLYMYXIN B SULFATE 500,000 UNITS ONE (15:56)
[2023-11-12] MEDS: IV NS 0.9% 250 ML IV PRN (19:47)
[2023-11-12] MEDS ORDERED: METOCLOPRAMIDE HCL 10 MG/2 ML VIAL IV PRN (20:00)
[2023-11-12] MEDS ORDERED: ONDANSETRON HCL/PF 4 MG/2 ML VIAL IV PRN (20:00)
[2023-11-12] MEDS: PIPERACILLIN /TAZOBACTAM 3.375 G in IV D5W 100 ML IV SCH (21:09)
[2023-11-13] VITALS (24 sets, daily range): BP systolic 90–139; BP diastolic 55–84; TEMP 97.4–98.4; O2SAT 41–100
[2023-11-13 04:11] LABS: *BASOS 0 % (Not Estab.); *EOS 0 % (Not Estab.); *IMMATURE GRANULOCYTES 1 % (Not Estab.); *LYMPHOCYTES 6 % (Not Estab.); *LYMPHS, ABSOLUTE 0.2 x10E3/uL (0.7-3.1); *MCH 30.2 pg (26.6-33.0); *MCHC 31.3 g/dL (31.5-35.7); *MCV 97 fL (79-97); *MONOCYTES 3 % (Not Estab.); *MONOS, ABSOLUTE 0.1 x10E3/uL (0.1-0.9); *NEUTROPHILS 90 % (Not Estab.); *NEUTROPHILS, ABSOLUTE 3.5 x10E3/uL (1.4-7.0); *PLT 206 x10E3/uL (150-450); *RBC 3.31 x10E6/uL (3.77-5.28); *WBC 3.9 x10E3/uL (3.4-10.8)
[2023-11-13 04:19] LABS: BASOPHILS % (AUTO) 0.1 % (0.0-2.0); HEMATOCRIT 30 % (33-45); HEMOGLOBIN 10.1 g/dL (11.5-14.8); LYMPHOCYTES # (AUTO) 0.3 K/uL (0.8-4.8); LYMPHOCYTES % (AUTO) 8.2 % (20.0-44.0); MEAN CORPUSCULAR HEMOGLOBIN 32 PG (26.0-33.0); MEAN CORPUSCULAR HGB CONC 34 g/dl (31.0-36.0); MEAN CORPUSCULAR VOLUME 95 fL (82-100); MONOCYTES # (AUTO) 0.1 K/uL (0.1-1.30); MONOCYTES % (AUTO) 2.5 % (2.0-12.0); NEUTROPHILS # (AUTO) 3.2 K/uL (1.8-8.9); NEUTROPHILS % (AUTO) 89.2 % (43.0-81.0); PLATELET COUNT (AUTO) 250 K/uL (150-450); RED BLOOD CELL COUNT(AUTO) 3.15 MIL/uL (4.0-5.2); RED CELL DISTRIBUTION WIDTH 15.5 % (11.5-15.0); WHITE BLOOD COUNT (AUTO) 3.5 K/uL (4.3-11.0)
[2023-11-13 04:29] LABS: CALCIUM, SERUM 8.7 mg/dL (8.5-10.1); CREATININE 0.6 mg/dL (0.6-1.3); POTASSIUM 3.8 mmol/L (3.5-5.1)
[2023-11-13 11:08] LABS: *% CD 4 POS. LYMPH 8.4 % (30.8-58.5); *% CD 8 POS. LYMPH 63.3 % (12.0-35.5); *ABSOLUTE CD 4 HELPER 17 /uL (359-1519); *ABSOLUTE CD 8 SUPPRESSOR 127 /uL (109-897); *CD4/CD8 RATIO 0.13 (0.92-3.72)
[2023-11-13] MEDS: HYDROCODONE/APAP 10/325MG TABLET PO PRN (11:21)
[2023-11-13] MEDS: HYDROMORPHONE 1 MG/1 ML DISP.SYRIN IV PRN (15:36)
[2023-11-13] MEDS: ENSURE CLEAR 237 ML LIQUID (MIX BERRY) PO SCH (17:46)
[2023-11-13] MEDS ORDERED: LORAZEPAM INJ 2 MG/ML VIAL IV PRN (18:30)
[2023-11-13] MEDS: NICOTINE PATCH (21MG) 21 MG PATCH.TD24 TD SCH (18:55)
[2023-11-13] MEDS: EFAVIRENZ 600 MG TABLET PO SCH (21:00)
[2023-11-13] MEDS: LAMIVUDINE/ZIDOVUDINE 150-300 1 TAB TABLET PO SCH (21:00)
[2023-11-13] MEDS: AZITHROMYCIN 250 MG TABLET PO ONE (21:32)
[2023-11-13 22:35] LABS: INR 0.92 (0.91-1.10); PROTHROMBIN TIME 9.8 SECS (9.2-11.1)
[2023-11-14] VITALS (36 sets, daily range): BP systolic 91–135; BP diastolic 61–80; TEMP 97.5–98.1; O2SAT 92–100
[2023-11-14] MEDS: IV NS 0.9% 1,000 ML IV PRN (02:01)
[2023-11-14 04:41] LABS: BASOPHILS % (AUTO) 0.1 % (0.0-2.0); EOSINOPHILS % (AUTO) 0.3 % (0.0-6.0); HEMATOCRIT 28 % (33-45); HEMOGLOBIN 9.6 g/dL (11.5-14.8); LYMPHOCYTES # (AUTO) 0.4 K/uL (0.8-4.8); MEAN CORPUSCULAR HEMOGLOBIN 32 PG (26.0-33.0); MEAN CORPUSCULAR HGB CONC 34 g/dl (31.0-36.0); MEAN CORPUSCULAR VOLUME 93 fL (82-100); MONOCYTES # (AUTO) 0.2 K/uL (0.1-1.30); MONOCYTES % (AUTO) 5.2 % (2.0-12.0); NEUTROPHILS # (AUTO) 3.6 K/uL (1.8-8.9); NEUTROPHILS % (AUTO) 85.4 % (43.0-81.0); PLATELET COUNT (AUTO) 305 K/uL (150-450); RED BLOOD CELL COUNT(AUTO) 3.04 MIL/uL (4.0-5.2); RED CELL DISTRIBUTION WIDTH 15.5 % (11.5-15.0); WHITE BLOOD COUNT (AUTO) 4.2 K/uL (4.3-11.0)
[2023-11-14 04:53] LABS: CALCIUM, SERUM 8.8 mg/dL (8.5-10.1); CREATININE 0.8 mg/dL (0.6-1.3); POTASSIUM 3.9 mmol/L (3.5-5.1)
[2023-11-14] MEDS: DAPSONE 25 MG TABLET PO SCH (10:32)
[2023-11-14] MEDS: ACYCLOVIR 800 MG TABLET PO SCH (10:35)
[2023-11-15] VITALS (28 sets, daily range): BP systolic 101–155; BP diastolic 58–90; TEMP 97.7–98.6; O2SAT 82–100
[2023-11-15 04:52] LABS: BASOPHILS % (AUTO) 0.1 % (0.0-2.0); EOSINOPHILS % (AUTO) 0.4 % (0.0-6.0); HEMATOCRIT 27 % (33-45); HEMOGLOBIN 9.2 g/dL (11.5-14.8); LYMPHOCYTES # (AUTO) 0.4 K/uL (0.8-4.8); MEAN CORPUSCULAR HEMOGLOBIN 32 PG (26.0-33.0); MEAN CORPUSCULAR HGB CONC 34 g/dl (31.0-36.0); MEAN CORPUSCULAR VOLUME 94 fL (82-100); MONOCYTES # (AUTO) 0.1 K/uL (0.1-1.30); MONOCYTES % (AUTO) 3.9 % (2.0-12.0); NEUTROPHILS # (AUTO) 3.1 K/uL (1.8-8.9); NEUTROPHILS % (AUTO) 83.6 % (43.0-81.0); PLATELET COUNT (AUTO) 304 K/uL (150-450); RED BLOOD CELL COUNT(AUTO) 2.92 MIL/uL (4.0-5.2); RED CELL DISTRIBUTION WIDTH 15.7 % (11.5-15.0); WHITE BLOOD COUNT (AUTO) 3.7 K/uL (4.3-11.0)
[2023-11-15 05:10] LABS: CALCIUM, SERUM 8.5 mg/dL (8.5-10.1); CREATININE 0.8 mg/dL (0.6-1.3); POTASSIUM 3.3 mmol/L (3.5-5.1)
[2023-11-15] MEDS: POTASSIUM CL. PREMIX PERIPHER. 50 ML IV SCH (09:06)
[2023-11-15] MEDS ORDERED: ANESTHESIA TRAY IN PYXIS 1 EA TRAY MC ONE (09:10)
[2023-11-15] MEDS ORDERED: BUPIVACAINE 0.5 % PF 150 MG/30 ML VIAL ONE (09:10)
[2023-11-15] MEDS ORDERED: POLYMYXIN B SULFATE 0 UNITS ONE (09:10)
[2023-11-15] MEDS ORDERED: LIDOCAINE 5% (PATCH) 1 EA PATCH TP ONE (09:11)
[2023-11-15] MEDS ORDERED: CEFAZOLIN 0 GM ONE (09:11)
[2023-11-15] MEDS ORDERED: GELATIN SPONGE,ABSORBABLE 1 SPONGE SPONGE TP ONE (09:11)
[2023-11-15] MEDS ORDERED: LIDOCAINE 1%-EPI 1:100,000 20 ML VIAL ONE (09:11)
[2023-11-15] MEDS ORDERED: GELATIN SPONGE,ABSORBABLE 1 EA SPONGE TP ONE (09:12)
[2023-11-15] MEDS ORDERED: THROMBIN (BOVINE) 5,000 UNITS VIAL TP ONE ×2 (09:12→14:28)
[2023-11-15] MEDS ORDERED: FENTANYL PF 250MCG/5ML AMPUL ONE (09:23)
[2023-11-15] MEDS ORDERED: SEVOFLURANE 250 ML BOTTLE IH ONE (09:23)
[2023-11-15] MEDS ORDERED: HYDROMORPHONE INJ 2 MG/ML DISP.SYRIN ONE (09:23)
[2023-11-15] MEDS ORDERED: ROCURONIUM BROMIDE 50 MG/5 ML ONE (09:23)
[2023-11-15] MEDS ORDERED: KETAMINE HCL (500MG/10ML) 50 MG/ML VIAL ONE (09:23)
[2023-11-15] MEDS ORDERED: PROPOFOL 200 ML ONE (09:23)
[2023-11-15] MEDS ORDERED: MIDAZOLAM HCL 2 MG/2ML VIAL ONE (09:23)
[2023-11-15] MEDS ORDERED: VASOPRESSIN INJ 20 UNIT/ML VIAL ONE (09:24)
[2023-11-15] MEDS ORDERED: HEMOSTATIC MATRIX 8 ML 1 EACH PAD MC ONE (09:50)
[2023-11-15] MEDS ORDERED: POLYMYXIN B SULFATE 500,000 UNITS ONE (09:50)
[2023-11-15] MEDS ORDERED: CEFAZOLIN 1 GM ONE (09:51)
[2023-11-15] MEDS ORDERED: MEPERIDINE25 MG SYR 25 MG/ML VIAL ONE (14:27)
[2023-11-15] MEDS: HYDROMORPHONE 1 MG/1 ML DISP.SYRIN IV PRN (19:30)
[2023-11-15] MEDS ORDERED: HYDROMORPHONE 1 MG/1 ML DISP.SYRIN IV PRN (21:00)
[2023-11-15] MEDS: ACYCLOVIR IV 500 MG in IV D5W 100 ML IV SCH (21:12)
[2023-11-15] MEDS: FLUCONAZOLE IN NS 400 MG in PREMIX 1 EA IV SCH (21:14)
[2023-11-15] MEDS: HYDROMORPHONE INJ 2 MG/ML DISP.SYRIN IV PRN (22:04)
[2023-11-16] VITALS (23 sets, daily range): BP systolic 93–154; BP diastolic 58–112; TEMP 97.9–99; O2SAT 88–100
[2023-11-16 08:11] LABS: CALCIUM, SERUM 8.7 mg/dL (8.5-10.1); CREATININE 0.8 mg/dL (0.6-1.3); POTASSIUM 2.9 mmol/L (3.5-5.1)
[2023-11-16] MEDS: POTASSIUM CHLORIDE 20 MEQ TAB.PRT.SR PO ONE (09:13)
[2023-11-16] MEDS ORDERED: GABAPENTIN 100 MG CAPSULE PO SCH (13:00)
[2023-11-16] MEDS: GABAPENTIN 300 MG CAPSULE PO SCH (13:09)
[2023-11-16] MEDS: VANCOMYCIN 750 MG in IV D5W 250 ML IV SCH (20:27)
[2023-11-17] VITALS (16 sets, daily range): BP systolic 110–141; BP diastolic 58–77; TEMP 97.2–99.7; O2SAT 82–100
[2023-11-17 06:12] LABS: ABG BASE EXCESS 3.3 mmol/L; ABG OXYGEN SATURATION 93.2 % (92.0-98.5); ABG PCO2 35.9 mmHg (35.0-45.0); ABG PH 7.489 (7.350-7.450); ABG PO2 61.6 mmHg (75.0-100.0); ABG TOTAL HEMOGLOBIN 9.1 G/dL (12.0-16.0); COHb 0.3 % (0.5-1.5); MetHb 0.5 % (0.0-1.5); O2Hb 92.5 % (94.0-97.0); SITE, ABG Right Radial
[2023-11-17 10:59] LABS: CALCIUM, SERUM 8.4 mg/dL (8.5-10.1); CREATININE 0.9 mg/dL (0.6-1.3); POTASSIUM 3.5 mmol/L (3.5-5.1)
[2023-11-17] MEDS ORDERED: FLUCONAZOLE (100 MG) 100 MG TABLET PO SCH (21:00)
[2023-11-17] MEDS: FLUCONAZOLE (100 MG) 100 MG TABLET PO SCH (21:37)
[2023-11-18] VITALS (62 sets, daily range): BP systolic 74–176; BP diastolic 50–93; TEMP 98–99.5; O2SAT 90–100
[2023-11-18] MEDS ORDERED: NOREPINEPHRINE 8 MG in IV D5W 242 ML IV PRN ×2 (03:30→04:30)
[2023-11-18] MEDS ORDERED: PROPOFOL 100 ML IV PRN (03:30)
[2023-11-18] MEDS: NOREPINEPHRINE 8 MG in IV D5W 242 ML IV PRN ×2 (03:55→03:58)
[2023-11-18] MEDS: NOREPINEPHRINE 8MG/250ML RTU 250 ML IV ONE (03:59)
[2023-11-18 04:08] LABS: BASOPHILS % (AUTO) 0.8 % (0.0-2.0); EOSINOPHILS % (AUTO) 0.2 % (0.0-6.0); HEMATOCRIT 22 % (33-45); HEMOGLOBIN 7.1 g/dL (11.5-14.8); LYMPHOCYTES # (AUTO) 0.5 K/uL (0.8-4.8); LYMPHOCYTES % (AUTO) 10.2 % (20.0-44.0); MEAN CORPUSCULAR HEMOGLOBIN 31 PG (26.0-33.0); MEAN CORPUSCULAR HGB CONC 32 g/dl (31.0-36.0); MEAN CORPUSCULAR VOLUME 97 fL (82-100); MONOCYTES # (AUTO) 0.1 K/uL (0.1-1.30); MONOCYTES % (AUTO) 1.5 % (2.0-12.0); NEUTROPHILS # (AUTO) 4.6 K/uL (1.8-8.9); NEUTROPHILS % (AUTO) 87.3 % (43.0-81.0); PLATELET COUNT (AUTO) 320 K/uL (150-450); RED BLOOD CELL COUNT(AUTO) 2.28 MIL/uL (4.0-5.2); RED CELL DISTRIBUTION WIDTH 15.6 % (11.5-15.0); WHITE BLOOD COUNT (AUTO) 5.3 K/uL (4.3-11.0)
[2023-11-18 04:16] LABS: CALCIUM, SERUM 10.4 mg/dL (8.5-10.1); CARBON DIOXIDE 28 mmol/L (21-32); CHLORIDE 100 mmol/L (98-107); CREATININE 1.1 mg/dL (0.6-1.3); GLUCOSE 150 mg/dL (74-106); POTASSIUM 3.7 mmol/L (3.5-5.1); SODIUM SERUM 140 mmol/L (136-145); UREA NITROGEN, BLOOD 18 mg/dL (7-18)
[2023-11-18 04:23] LABS: ALANINE AMINOTRANSFERASE 97 U/L (12-78); ALKALINE PHOSPHATASE 136 U/L (46-116); ASPARTATE AMINOTRANSFERASE 154 U/L (15-37); BILIRUBIN,TOTAL 0.3 mg/dL (0.2-1.0); TOTAL PROTEIN, SERUM 6.9 g/dL (6.4-8.2)
[2023-11-18 04:24] LABS: INR 1.03 (0.91-1.10); PARTIAL THROMBOPLASTIN TIME 32.2 SEC (24.3-34.3); PROTHROMBIN TIME 10.9 SECS (9.2-11.1)
[2023-11-18 04:33] LABS: ALBUMIN 1.1 g/dL (3.4-5.0)
[2023-11-18 04:35] LABS: ABG BASE EXCESS 1.5 mmol/L; ABG OXYGEN SATURATION 99.6 % (92.0-98.5); ABG PCO2 51.5 mmHg (35.0-45.0); ABG PH 7.346 (7.350-7.450); ABG PO2 473.1 mmHg (75.0-100.0); ABG TOTAL HEMOGLOBIN 8.6 G/dL (12.0-16.0); AaDO2 188.4 mmHg; COHb 0.5 % (0.5-1.5); MetHb 0.2 % (0.0-1.5); O2Hb 98.9 % (94.0-97.0); PEEP,BG 5 cm H2O; SITE, ABG Right Brachial; VT, ABG 400 mL
[2023-11-18] MEDS: ACYCLOVIR 800 MG TABLET PO SCH (09:00)
[2023-11-18] MEDS ORDERED: EPINEPHRINE (1:10,000) SYRINGE 1 MG/10 ML DISP.SYRIN IVP ONE (09:06)
[2023-11-18 09:12] LABS: CALCIUM, SERUM 9.6 mg/dL (8.5-10.1); CREATININE 0.8 mg/dL (0.6-1.3); POTASSIUM 3.4 mmol/L (3.5-5.1)
[2023-11-18] MEDS: IV NS 0.9% 1,000 ML IV PRN (10:31)
[2023-11-18] MEDS ORDERED: HYDROCODONE/APAP 10/325MG TABLET GT PRN (15:09)
[2023-11-18] MEDS ORDERED: MAGNESIUM HYDROXIDE 30 ML UDC GT PRN (15:11)
[2023-11-18] MEDS ORDERED: MAG HYDROX/AL HYDROX/SIMETH 30 ML UDC GT PRN (15:11)
[2023-11-18] MEDS ORDERED: LORAZEPAM 1 MG TABLET GT PRN (15:11)
[2023-11-18] MEDS ORDERED: TRAMADOL HCL 50 MG TABLET GT PRN (15:14)
[2023-11-18] MEDS ORDERED: POLYETHYLENE GLYCOL 3350 17 GM POWD.PACK GT PRN (15:18)
[2023-11-18] MEDS ORDERED: PHARMACY TO CHANGE PO MEDS TO GT/NG XX PRN (15:30)
[2023-11-18] MEDS: PIPERACILLIN /TAZOBACTAM 3.375 G in IV D5W 100 ML IV SCH (16:08)
[2023-11-18] MEDS: FLUCONAZOLE (100 MG) 100 MG TABLET GT SCH (16:10)
[2023-11-18] MEDS: ACYCLOVIR 800 MG TABLET GT SCH (16:11)
[2023-11-18] MEDS: FAMOTIDINE (20 MG) 20 MG TABLET GT SCH (16:12)
[2023-11-18] MEDS: GABAPENTIN 300 MG CAPSULE GT SCH (16:12)
[2023-11-18] MEDS: BACLOFEN (10 MG) 10 MG TABLET GT SCH (16:12)
[2023-11-18] MEDS ORDERED: MORPHINE SULFATE INJ 2 MG/ML DISP.SYRIN IV PRN (16:30)
[2023-11-18] MEDS: ENSURE CLEAR 237 ML LIQUID (MIX BERRY) GT SCH (17:00)
[2023-11-18] MEDS: LAMIVUDINE/ZIDOVUDINE 150-300 1 TAB TABLET GT SCH (21:10)
[2023-11-18] MEDS: MIRTAZAPINE 15 MG TABLET GT SCH (21:10)
[2023-11-18] MEDS: ATORVASTATIN 40 MG TABLET GT SCH (21:11)
[2023-11-18] MEDS: TEMAZEPAM 15 MG CAPSULE GT SCH (21:12)
[2023-11-19] VITALS (46 sets, daily range): BP systolic 116–178; BP diastolic 70–95; TEMP 97.2–100; O2SAT 92–100
[2023-11-19 04:49] LABS: BASOPHILS % (AUTO) 0.3 % (0.0-2.0); EOSINOPHILS % (AUTO) 0.2 % (0.0-6.0); HEMATOCRIT 22 % (33-45); HEMOGLOBIN 7.2 g/dL (11.5-14.8); LYMPHOCYTES # (AUTO) 0.6 K/uL (0.8-4.8); LYMPHOCYTES % (AUTO) 8.2 % (20.0-44.0); MEAN CORPUSCULAR HEMOGLOBIN 32 PG (26.0-33.0); MEAN CORPUSCULAR HGB CONC 33 g/dl (31.0-36.0); MEAN CORPUSCULAR VOLUME 94 fL (82-100); MONOCYTES # (AUTO) 0.2 K/uL (0.1-1.30); MONOCYTES % (AUTO) 2.6 % (2.0-12.0); NEUTROPHILS % (AUTO) 88.7 % (43.0-81.0); PLATELET COUNT (AUTO) 294 K/uL (150-450); RED BLOOD CELL COUNT(AUTO) 2.29 MIL/uL (4.0-5.2); RED CELL DISTRIBUTION WIDTH 16.1 % (11.5-15.0); WHITE BLOOD COUNT (AUTO) 6.8 K/uL (4.3-11.0)
[2023-11-19 05:00] LABS: CALCIUM, SERUM 8.7 mg/dL (8.5-10.1); CREATININE 0.8 mg/dL (0.6-1.3); POTASSIUM 3.2 mmol/L (3.5-5.1)
[2023-11-19] MEDS: RIFAMPIN 300 MG CAPSULE GT SCH (08:11)
[2023-11-19] MEDS: LEVOTHYROXINE SODIUM 50 MCG TABLET GT SCH (08:11)
[2023-11-19] MEDS: AMLODIPINE BESYLATE 10 MG TABLET GT SCH (08:12)
[2023-11-19 08:26] LABS: ABG BASE EXCESS 4.6 mmol/L; ABG OXYGEN SATURATION 98.2 % (92.0-98.5); ABG PCO2 40.2 mmHg (35.0-45.0); ABG PO2 116.7 mmHg (75.0-100.0); ABG TOTAL HEMOGLOBIN 7.9 G/dL (12.0-16.0); AaDO2 122.3 mmHg; COHb 0.6 % (0.5-1.5); MetHb 0.1 % (0.0-1.5); O2Hb 97.5 % (94.0-97.0); PEEP,BG 5 cm H2O; SITE, ABG Right Radial; VENT MODE, BG AC @ 40%; VT, ABG 400 mL
[2023-11-19] MEDS: EFAVIRENZ 600 MG TABLET GT SCH (09:04)
[2023-11-19] MEDS: POTASSIUM CHLORIDE 20 MEQ POWDER PACKET NG SCH (10:08)
[2023-11-19] MEDS: JEVITY 1.2 CAL 1,000 ML BOTTLE GT PRN (11:56)
[2023-11-19] MEDS: ACETAMINOPHEN 650 MG/20.3 ML UDC GT PRN (14:44)
[2023-11-19] MEDS: hydrALAZINE HCL IV 20 MG VIAL IV PRN (19:21)
[2023-11-19] MEDS ORDERED: IOHEXOL-350 100 ML VIAL IV ONE (21:39)
[2023-11-19] MEDS ORDERED: CT SWABBABLE VALVE TRANS SET 1 EA INFUS.SET MC ONE (21:39)
[2023-11-19] MEDS ORDERED: IV NS 0.9% 250 ML IV ONE (21:40)
[2023-11-20] VITALS (30 sets, daily range): BP systolic 92–190; BP diastolic 55–86; TEMP 97.1–100.4; O2SAT 94–100
[2023-11-20 03:41] LABS: BASOPHILS % (AUTO) 0.3 % (0.0-2.0); EOSINOPHILS % (AUTO) 0.3 % (0.0-6.0); HEMATOCRIT 26 % (33-45); HEMOGLOBIN 8.9 g/dL (11.5-14.8); LYMPHOCYTES # (AUTO) 0.4 K/uL (0.8-4.8); LYMPHOCYTES % (AUTO) 6.8 % (20.0-44.0); MEAN CORPUSCULAR HEMOGLOBIN 31 PG (26.0-33.0); MEAN CORPUSCULAR HGB CONC 34 g/dl (31.0-36.0); MEAN CORPUSCULAR VOLUME 92 fL (82-100); MONOCYTES # (AUTO) 0.1 K/uL (0.1-1.30); MONOCYTES % (AUTO) 2.4 % (2.0-12.0); NEUTROPHILS # (AUTO) 5.3 K/uL (1.8-8.9); NEUTROPHILS % (AUTO) 90.2 % (43.0-81.0); PLATELET COUNT (AUTO) 288 K/uL (150-450); RED BLOOD CELL COUNT(AUTO) 2.87 MIL/uL (4.0-5.2); RED CELL DISTRIBUTION WIDTH 16.2 % (11.5-15.0); WHITE BLOOD COUNT (AUTO) 5.9 K/uL (4.3-11.0)
[2023-11-20 03:55] LABS: CALCIUM, SERUM 8.8 mg/dL (8.5-10.1); CREATININE 0.7 mg/dL (0.6-1.3); MAGNESIUM 1.7 mg/dL (1.8-2.4); PHOSPHORUS 2.8 mg/dL (2.5-4.9); POTASSIUM 2.9 mmol/L (3.5-5.1)
[2023-11-20 04:34] LABS: INR 1.02 (0.91-1.10); PARTIAL THROMBOPLASTIN TIME 34.2 SEC (24.3-34.3); PROTHROMBIN TIME 10.8 SECS (9.2-11.1)
[2023-11-20] MEDS: POTASSIUM CHLORIDE 20 MEQ POWDER PACKET NG SCH (09:36)
[2023-11-20] MEDS: RIVAROXABAN 10 MG TABLET PO SCH (16:02)
[2023-11-21] VITALS (24 sets, daily range): BP systolic 101–162; BP diastolic 66–88; TEMP 98.3–99; O2SAT 93–100
[2023-11-21 04:49] LABS: BASOPHILS % (AUTO) 0.5 % (0.0-2.0); EOSINOPHILS % (AUTO) 0.7 % (0.0-6.0); HEMATOCRIT 28 % (33-45); HEMOGLOBIN 9.3 g/dL (11.5-14.8); LYMPHOCYTES # (AUTO) 0.3 K/uL (0.8-4.8); LYMPHOCYTES % (AUTO) 8.6 % (20.0-44.0); MEAN CORPUSCULAR HEMOGLOBIN 31 PG (26.0-33.0); MEAN CORPUSCULAR HGB CONC 33 g/dl (31.0-36.0); MEAN CORPUSCULAR VOLUME 92 fL (82-100); MONOCYTES # (AUTO) 0.1 K/uL (0.1-1.30); MONOCYTES % (AUTO) 3.7 % (2.0-12.0); NEUTROPHILS # (AUTO) 3.3 K/uL (1.8-8.9); NEUTROPHILS % (AUTO) 86.5 % (43.0-81.0); PLATELET COUNT (AUTO) 274 K/uL (150-450); RED BLOOD CELL COUNT(AUTO) 3.03 MIL/uL (4.0-5.2); RED CELL DISTRIBUTION WIDTH 15.8 % (11.5-15.0); WHITE BLOOD COUNT (AUTO) 3.8 K/uL (4.3-11.0)
[2023-11-21 05:04] LABS: CALCIUM, SERUM 8.8 mg/dL (8.5-10.1); CREATININE 0.6 mg/dL (0.6-1.3); MAGNESIUM 1.8 mg/dL (1.8-2.4); PHOSPHORUS 2.8 mg/dL (2.5-4.9); POTASSIUM 3.3 mmol/L (3.5-5.1)
[2023-11-21] MEDS: POTASSIUM CHLORIDE 20 MEQ POWDER PACKET NG SCH (11:54)
[2023-11-21] MEDS: VANCOMYCIN 1 GM in IV D5W 250ml IV SCH (20:53)
[2023-11-22] VITALS (24 sets, daily range): BP systolic 98–177; BP diastolic 64–92; TEMP 98.1–99.6; O2SAT 87–99
[2023-11-22 05:07] LABS: BASOPHILS % (AUTO) 0.2 % (0.0-2.0); EOSINOPHILS % (AUTO) 0.3 % (0.0-6.0); HEMATOCRIT 27 % (33-45); HEMOGLOBIN 8.9 g/dL (11.5-14.8); LYMPHOCYTES # (AUTO) 0.4 K/uL (0.8-4.8); MEAN CORPUSCULAR HEMOGLOBIN 31 PG (26.0-33.0); MEAN CORPUSCULAR HGB CONC 33 g/dl (31.0-36.0); MEAN CORPUSCULAR VOLUME 93 fL (82-100); MONOCYTES # (AUTO) 0.2 K/uL (0.1-1.30); NEUTROPHILS # (AUTO) 4.2 K/uL (1.8-8.9); NEUTROPHILS % (AUTO) 86.5 % (43.0-81.0); PLATELET COUNT (AUTO) 268 K/uL (150-450); RED BLOOD CELL COUNT(AUTO) 2.88 MIL/uL (4.0-5.2); RED CELL DISTRIBUTION WIDTH 16.1 % (11.5-15.0); WHITE BLOOD COUNT (AUTO) 4.9 K/uL (4.3-11.0)
[2023-11-22 05:26] LABS: CALCIUM, SERUM 8.7 mg/dL (8.5-10.1); CREATININE 0.7 mg/dL (0.6-1.3); MAGNESIUM 1.7 mg/dL (1.8-2.4); PHOSPHORUS 2.5 mg/dL (2.5-4.9); POTASSIUM 3.6 mmol/L (3.5-5.1)
[2023-11-22] MEDS: MAGNESIUM OXIDE 400 MG TABLET PO ONE (11:38)
[2023-11-22] MEDS: LANOLIN/MIN OIL/PETROLAT,WHT 3.5 GM TUBE EACHEYE SCH (14:49)
[2023-11-23] VITALS (24 sets, daily range): BP systolic 101–160; BP diastolic 66–84; TEMP 98.6–99.3; O2SAT 92–100
[2023-11-23 05:13] LABS: BASOPHILS % (AUTO) 0.5 % (0.0-2.0); EOSINOPHILS % (AUTO) 0.4 % (0.0-6.0); HEMATOCRIT 26 % (33-45); HEMOGLOBIN 8.8 g/dL (11.5-14.8); LYMPHOCYTES # (AUTO) 0.6 K/uL (0.8-4.8); LYMPHOCYTES % (AUTO) 9.6 % (20.0-44.0); MEAN CORPUSCULAR HEMOGLOBIN 31 PG (26.0-33.0); MEAN CORPUSCULAR HGB CONC 33 g/dl (31.0-36.0); MEAN CORPUSCULAR VOLUME 92 fL (82-100); MONOCYTES # (AUTO) 0.2 K/uL (0.1-1.30); MONOCYTES % (AUTO) 3.4 % (2.0-12.0); NEUTROPHILS # (AUTO) 5.3 K/uL (1.8-8.9); NEUTROPHILS % (AUTO) 86.1 % (43.0-81.0); PLATELET COUNT (AUTO) 268 K/uL (150-450); RED BLOOD CELL COUNT(AUTO) 2.87 MIL/uL (4.0-5.2); RED CELL DISTRIBUTION WIDTH 16.2 % (11.5-15.0); WHITE BLOOD COUNT (AUTO) 6.2 K/uL (4.3-11.0)
[2023-11-23 05:27] LABS: CALCIUM, SERUM 8.6 mg/dL (8.5-10.1); CREATININE 0.6 mg/dL (0.6-1.3); MAGNESIUM 1.6 mg/dL (1.8-2.4); POTASSIUM 3.5 mmol/L (3.5-5.1)
[2023-11-23] MEDS: Magnesium 1GM/D5W 100ML PREMIX 100 ML IV SCH (08:03)
[2023-11-23] MEDS: Magnesium 1GM/D5W 100ML PREMIX PIGGYBACK IV ONE (15:20)
[2023-11-24] VITALS (26 sets, daily range): BP systolic 97–158; BP diastolic 63–83; TEMP 97.7–99.8; O2SAT 97–100
[2023-11-24 05:01] LABS: BASOPHILS % (AUTO) 0.2 % (0.0-2.0); EOSINOPHILS % (AUTO) 0.5 % (0.0-6.0); HEMATOCRIT 27 % (33-45); HEMOGLOBIN 8.9 g/dL (11.5-14.8); LYMPHOCYTES # (AUTO) 0.6 K/uL (0.8-4.8); LYMPHOCYTES % (AUTO) 11.3 % (20.0-44.0); MEAN CORPUSCULAR HEMOGLOBIN 31 PG (26.0-33.0); MEAN CORPUSCULAR HGB CONC 33 g/dl (31.0-36.0); MEAN CORPUSCULAR VOLUME 93 fL (82-100); MONOCYTES # (AUTO) 0.2 K/uL (0.1-1.30); MONOCYTES % (AUTO) 3.5 % (2.0-12.0); NEUTROPHILS # (AUTO) 4.4 K/uL (1.8-8.9); NEUTROPHILS % (AUTO) 84.5 % (43.0-81.0); PLATELET COUNT (AUTO) 287 K/uL (150-450); RED BLOOD CELL COUNT(AUTO) 2.89 MIL/uL (4.0-5.2); WHITE BLOOD COUNT (AUTO) 5.2 K/uL (4.3-11.0)
[2023-11-24 05:17] LABS: CALCIUM, SERUM 8.8 mg/dL (8.5-10.1); CREATININE 0.6 mg/dL (0.6-1.3); MAGNESIUM 2.1 mg/dL (1.8-2.4); PHOSPHORUS 3.7 mg/dL (2.5-4.9)
[2023-11-24] MEDS: VANCOMYCIN 1.25 GM in IV D5W 250 ML IV SCH (19:59)
[2023-11-25] VITALS (15 sets, daily range): BP systolic 83–146; BP diastolic 56–79; TEMP 97.7–100; O2SAT 34–100
[2023-11-25 04:46] LABS: BASOPHILS % (AUTO) 0.5 % (0.0-2.0); EOSINOPHILS % (AUTO) 0.7 % (0.0-6.0); HEMATOCRIT 25 % (33-45); HEMOGLOBIN 8.4 g/dL (11.5-14.8); LYMPHOCYTES # (AUTO) 0.6 K/uL (0.8-4.8); LYMPHOCYTES % (AUTO) 16.5 % (20.0-44.0); MEAN CORPUSCULAR HEMOGLOBIN 31 PG (26.0-33.0); MEAN CORPUSCULAR HGB CONC 34 g/dl (31.0-36.0); MEAN CORPUSCULAR VOLUME 93 fL (82-100); MONOCYTES # (AUTO) 0.2 K/uL (0.1-1.30); MONOCYTES % (AUTO) 5.7 % (2.0-12.0); NEUTROPHILS # (AUTO) 2.8 K/uL (1.8-8.9); NEUTROPHILS % (AUTO) 76.6 % (43.0-81.0); PLATELET COUNT (AUTO) 332 K/uL (150-450); RED CELL DISTRIBUTION WIDTH 16.1 % (11.5-15.0); WHITE BLOOD COUNT (AUTO) 3.7 K/uL (4.3-11.0)
[2023-11-25 05:08] LABS: CALCIUM, SERUM 8.7 mg/dL (8.5-10.1); CREATININE 0.7 mg/dL (0.6-1.3); MAGNESIUM 1.9 mg/dL (1.8-2.4); PHOSPHORUS 3.4 mg/dL (2.5-4.9); POTASSIUM 4.2 mmol/L (3.5-5.1)
[2023-11-25] MEDS: LORAZEPAM INJ 2 MG/ML VIAL IV PRN (10:33)
[2023-11-25] MEDS: MORPHINE SULFATE INJ 2 MG/ML DISP.SYRIN IV ONE (10:34)
[2023-11-25] MEDS: MORPHINE SULFATE INJ 2 MG/ML DISP.SYRIN IV PRN (11:41)
[2023-11-25] MEDS ORDERED: DC PROPOFOL WHEN EXTUBATED XX PRN (11:55)
== END 2023-11-25 15:07 | DRG 950 ==
LOC: ER 09:16 → TELE 12:51 → MED 10-24 22:36 → TELE 11-01 → ICU 11-04 08:10 → TELE 11-04 16:33 → MED 11-10 23:12 → ICU 11-12 18:46 → TELE 11-16 17:08 → ICU 11-18 03:09
PROVIDERS: ADMIT Internal Medicine; ATTEND Student in an Organized Health Care Education/Training Program
PROC: 0DB58ZX Excision of Esophagus, Via Natural or Artificial Opening Endoscopic, Diagnostic (ICD-10-PCS; principal; 2023-10-26)
PROC: B24BZZ4 Ultrasonography of Heart with Aorta, Transesophageal (ICD-10-PCS; 2023-11-04)
PROC: B246ZZ4 Ultrasonography of Right and Left Heart, Transesophageal (ICD-10-PCS; 2023-11-04)
PROC: 00NW0ZZ Release Cervical Spinal Cord, Open Approach (ICD-10-PCS; 2023-11-12)
PROC: 4A1004G Monitoring of Central Nervous Electrical Activity, Intraoperative, Open Approach (ICD-10-PCS; 2023-11-12)
PROC: 30233N1 Transfusion of Nonautologous Red Blood Cells into Peripheral Vein, Percutaneous Approach (ICD-10-PCS; 2023-11-12)
PROC: 05HB33Z Insertion of Infusion Device into Right Basilic Vein, Percutaneous Approach (ICD-10-PCS; 2023-11-14)
PROC: 0RG20A0 Fusion of 2 or more Cervical Vertebral Joints with Interbody Fusion Device, Anterior Approach, Anterior Column, Open Approach (ICD-10-PCS; 2023-11-15)
PROC: 00NW0ZZ Release Cervical Spinal Cord, Open Approach (ICD-10-PCS; 2023-11-15)
PROC: 0RB30ZZ Excision of Cervical Vertebral Disc, Open Approach (ICD-10-PCS; 2023-11-15)
PROC: 0BH18EZ Insertion of Endotracheal Airway into Trachea, Via Natural or Artificial Opening Endoscopic (ICD-10-PCS; 2023-11-18)
PROC: 5A1955Z Respiratory Ventilation, Greater than 96 Consecutive Hours (ICD-10-PCS; 2023-11-18)
DX: J45.901 Unspecified asthma with (acute) exacerbation (principal); I63.442 Cerebral infarction due to embolism of left cerebellar artery; I77.74 Dissection of vertebral artery; G06.2 Extradural and subdural abscess, unspecified; J69.0 Pneumonitis due to inhalation of food and vomit; J44.1 Chronic obstructive pulmonary disease with (acute) exacerbation; R57.1 Hypovolemic shock; J96.01 Acute respiratory failure with hypoxia; I26.94 Multiple subsegmental thrombotic pulmonary emboli without acute cor pulmonale; R64 Cachexia; E44.0 Moderate protein-calorie malnutrition; S12.200A Unspecified displaced fracture of third cervical vertebra, initial encounter for closed fracture; G82.50 Quadriplegia, unspecified; Z66 Do not resuscitate; Z51.5 Encounter for palliative care; G93.41 Metabolic encephalopathy; B37.81 Candidal esophagitis; J84.10 Pulmonary fibrosis, unspecified; B20 Human immunodeficiency virus [HIV] disease; E87.1 Hypo-osmolality and hyponatremia; G95.20 Unspecified cord compression; Z59.01 Sheltered homelessness; K29.70 Gastritis, unspecified, without bleeding; M40.292 Other kyphosis, cervical region; F17.210 Nicotine dependence, cigarettes, uncomplicated; Z91.199 Patient's noncompliance with other medical treatment and regimen due to unspecified reason; Z90.710 Acquired absence of both cervix and uterus; Z88.2 Allergy status to sulfonamides; Z79.51 Long term (current) use of inhaled steroids; Z79.899 Other long term (current) drug therapy; R91.1 Solitary pulmonary nodule; Z86.73 Personal history of transient ischemic attack (TIA), and cerebral infarction without residual deficits; W19.XXXA Unspecified fall, initial encounter; Y92.230 Patient room in hospital as the place of occurrence of the external cause; E03.9 Hypothyroidism, unspecified; E88.09 Other disorders of plasma-protein metabolism, not elsewhere classified; G93.1 Anoxic brain damage, not elsewhere classified; I10 Essential (primary) hypertension; E87.6 Hypokalemia; E83.42 Hypomagnesemia; E78.5 Hyperlipidemia, unspecified; E83.52 Hypercalcemia; E86.1 Hypovolemia; R78.81 Bacteremia; B95.62 Methicillin resistant Staphylococcus aureus infection as the cause of diseases classified elsewhere; F10.10 Alcohol abuse, uncomplicated; Y90.9 Presence of alcohol in blood, level not specified; R29.712 NIHSS score 12; J43.9 Emphysema, unspecified; M46.22 Osteomyelitis of vertebra, cervical region; M46.42 Discitis, unspecified, cervical region; M40.202 Unspecified kyphosis, cervical region; M43.12 Spondylolisthesis, cervical region; M47.12 Other spondylosis with myelopathy, cervical region; M48.02 Spinal stenosis, cervical region; S01.112A Laceration without foreign body of left eyelid and periocular area, initial encounter; Z79.01 Long term (current) use of anticoagulants; Q21.12 Patent foramen ovale; N12 Tubulo-interstitial nephritis, not specified as acute or chronic; K59.00 Constipation, unspecified; N88.8 Other specified noninflammatory disorders of cervix uteri; R79.89 Other specified abnormal findings of blood chemistry; I65.02 Occlusion and stenosis of left vertebral artery; Y92.9 Unspecified place or not applicable
CPT/HCPCS: 31720; 36410; 36415; 36600; 70450-TC; 70496-TC; 70498-TC; 71045-TC; 71260-TC; 72040-TC; 72050-TC; 72125-TC; 72141-TC; 74018; 74230-TC; 80048-TC; 80053-TC; 80061-TC; 80076-TC; 80202-TC; 81001; 82533; 82607-TC; 82803-TC; 82962-TC; 83605-TC; 83735-TC; 83921; 83935-TC; 84100-TC; 84300-TC; 84439-TC; 84443-TC; 84484-TC; 84550-TC; 85025-TC; 85610-TC; 85730-TC; 86360; 86850-TC; 87040-TC; 87081-TC; 87086-TC; 87102-TC; 88305-TC; 88311-TC; 88313-TC; 92526; 92611-TC; 92950-TC; 93307-TC; 93312-TC; 93880-TC; 93970-TC; 94002-TC; 94003-TC; 94760-TC; 94761-TC; 94762-TC; 94799-TC; 95819-TC; 97110-TC; 97116-TC; 97164; 97530-TC; 97535-TC; 99082-TC; A4216; A4217; A4223; A6209; A6402; C1713; C1751; C1776; C1889; G0378; J0133; J0171; J0330; J0360; J0690; J0692; J1100; J1170; J1450; J1650; J2060; J2175; J2250; J2270; J2310; J2405; J2543; J2704; J2920; J2930; J3010; J3370; J3371; J3430; J3475; J3480; J3490; J7030; J7040; J7050; J7060; J7120; L0120; P9016; Q9967